=== PATIENT | male | born 1955 | race Caucasian/White ===

== ENCOUNTER 2022-04-07 09:34 | Outpatient (REF) | payer OTHER, SELFPAY ==
[2022-04-07 11:15] LABS: MANUAL DIFF FLAG NO
[2022-04-07 11:21] LABS: Appearance Urine Clear; Color Urine Yellow; Glucose Urine UA Negative (Negative); Leukocyte Esterase Urine Negative (Negative); Nitrite Urine Negative (Negative); Urine Blood Negative (Negative); Urine Ketones Negative (Negative); Urine Protein Negative (Neg-Trace)
[2022-04-07 11:31] LABS: Basophils Percent Auto 0.6 % (0-2); Eosinophils Absolute Auto 0.1 X10*3/uL (0.0-0.4); Eosinophils Percent Auto 1.8 % (0-4); Hematocrit 45.6 % (42.0-52.0); Hemoglobin 15.3 g/dl (14.0-18.0); Imm Gran Abs Auto 0.03 X10*3/uL (0.00-0.03); Imm Gran Pct Auto 0.5 % (0.0-0.4); Lymphocytes Absolute Auto 1.6 X10*3/uL (1.2-4.9); Lymphocytes Percent Auto 23.8 % (20-40); Mean Corpuscular HGB Conc 33.6 g/dl (31.0-36.0); Mean Corpuscular Hemoglobin 29.9 pg (27.0-33.0); Mean Corpuscular Volume 89.2 fL (80.0-98.0); Mean Platelet Volume 10.4 fL (9.4-12.4); Monocytes Absolute Auto 0.9 X10*3/uL (0.1-1.2); Neutrophils Percent Auto 60.3 % (45-73); Platelet Count 133 X10*3/uL (160-400); Red Blood Count 5.11 X10*6/uL (4.60-5.80); Red Cell Distribution Width 12.6 % (11.0-16.0); White Blood Count 6.6 X10*3/uL (4.8-10.8)
[2022-04-07 12:26] LABS: Creatinine Urine 135.34 mg/dL; Microalbum/Creatinine Ratio Ur 17.7 ug/mg cr
[2022-04-07 12:33] LABS: Alanine Aminotransferase 34 U/L (0-40); Albumin Level 4.4 g/dL (3.5-5.0); Alkaline Phosphatase 79 U/L (39-117); Anion Gap 10 (12-20); Aspartate Amino Transferase 19 U/L (5-37); Blood Urea Nitrogen 16 mg/dL (9-16); Calcium 9.1 mg/dL (8.4-10.2); Carbon Dioxide 29 mmol/L (22-29); Chloride 105 mmol/L (96-108); Cholesterol 132 mg/dL; Estimated Glomerular Filt Rate > 60; Glucose Fasting 103 mg/dL (60-99); HDL Cholesterol 28 mg/dL; LDL Cholesterol Calculated 81 mg/dl; Potassium 4.3 mmol/L (3.3-5.1); Sodium 140 mmol/L (135-145); Total Protein 6.6 g/dL (6.5-8.0); Triglycerides 115 mg/dL
[2022-04-07 12:51] LABS: Prostate Specific Antigen Scr 2.52 ng/mL (<0.05-4.0); TSH reflex Free T4 1.38 uIU/mL (0.32-4.0)
== END 2022-04-07 09:35 | disposition home or self-care (01) ==
LOC: HO.WFDLDS 09:34
PROVIDERS: Visit Provider Family Medicine
DX: Z00.00 Encounter for general adult medical examination without abnormal findings (principal); Z12.5 Encounter for screening for malignant neoplasm of prostate; I10 Essential (primary) hypertension
CPT/HCPCS: 36415; 80053; 80061; 81003; 82043; 84153; 84443; 85025

== ENCOUNTER 2022-08-17 09:08 | Outpatient (REF) | payer OTHER, SELFPAY ==
[2022-08-17 11:37] LABS: Alanine Aminotransferase 22 U/L (0-40); Albumin Level 4.3 g/dL (3.5-5.0); Alkaline Phosphatase 64 U/L (39-117); Anion Gap 11 (12-20); Aspartate Amino Transferase 17 U/L (5-37); Bilirubin Total 1.1 mg/dL (0.0-1.0); Blood Urea Nitrogen 16 mg/dL (9-16); Calcium 9.1 mg/dL (8.4-10.2); Carbon Dioxide 27 mmol/L (22-29); Chloride 105 mmol/L (96-108); Cholesterol 132 mg/dL; Estimated Glomerular Filt Rate > 60; Glucose Fasting 97 mg/dL (60-99); HDL Cholesterol 32 mg/dL; LDL Cholesterol Calculated 76 mg/dl; Potassium 4.2 mmol/L (3.3-5.1); Sodium 139 mmol/L (135-145); Total Protein 6.7 g/dL (6.5-8.0); Triglycerides 124 mg/dL
== END 2022-08-17 09:09 | disposition home or self-care (01) ==
LOC: HO.WFDLDS 09:08
PROVIDERS: Visit Provider Family Medicine
DX: Z00.00 Encounter for general adult medical examination without abnormal findings (principal); E78.5 Hyperlipidemia, unspecified
CPT/HCPCS: 36415; 80053; 80061

== ENCOUNTER 2022-12-18 15:33 | Outpatient (AMB) | payer OTHER, SELFPAY ==
--- NOTE | 2022-12-18 15:41 | A.OFFPC_ITS ---
Vital Signs 12/18/22 15:45 Height 5 ft 10 in Weight 196 lb BMI 28.1 BP 136/72 Blood Pressure Location Lt brachial Position Sitting Pulse 69 Pulse Source Pulse Oximeter Pulse Oximetry (%) 96 Oxygen Delivery Method Room Air Intake Visit Reasons: f/u hypertension Intake Note: Patient is here to follow up on hypertension, and is complaining of right foot pain today. 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 HIs name is Timothy Alves [phone]. [address] [facility] in [place]. Allergies No Known Allergies Allergy (Verified 12/18/22 15:48) Tobacco use date assessed: 08/24/22 HPI f/u hypertension HPI Details Patient?presents?to?follow-up?hypertension. Blood?pressure?is?a?little?too?high?today .??His?bookmobile librarian?had?decreased?amlodipine.??He?notes?his?blood?pressures?are? high?at?home?as?well. Had?added?Zetia?to?his?atorvastatin?for?better?lipid?control.??He?is?tolerating? this?well. He?has?right?heel?pain?which?worsens?after?sitting?or?resting PFSH Social History Housing: House Patient Tobacco Use Status: Never used Tobacco e-Cigarette/Vaping Use: Never Used Second Hand Smoke Exposure: No service: No Current occupational status: employed Current occupational exposures/hazards: No Cognitive needs: No Hearing needs: No Vision needs: No Questionnaire Thrive Questionnaire Date Thrive assessed: 04/14/22 VAMSHI-7 AMB Questionnaire VAMSHI-7 Date VAMSHI - 7 assessed: 04/14/22 Source: Developed by Drs. Smith Davies, Jennifer Melendez, Camacho Vance and colleagues, with an educational gage from [employer]. Review of Systems Const Denies chills, Denies fatigue, Denies fever(s), Denies headache(s) and Denies weakness ENT Denies dizziness and Denies headache(s) Card Denies chest pain, Denies lightheadedness, Denies dyspnea and Denies other (Palpitations) Resp Denies cough, Denies dyspnea, Denies wheezing and Denies other ( shortness of breath) Musc Details: Right?posterior?heel?pain Denies numbness and Denies tingling Neuro Denies dizziness, Denies headache(s), Denies numbness, Denies tingling, Denies paresthesias and Denies weakness Psych Denies anxiety and Denies depression Endo Denies fatigue Aller/Immun Denies wheezing Physical exam (Primary Care) Vital Signs: Last Vital Signs Pulse 69 12/18/22 15:45 BP 136/72 12/18/22 15:45 Pulse Ox 96 12/18/22 15:45 Oxygen Delivery Method Room Air 12/18/22 15:45 BMI result Body Mass Index 28.1 Tobacco/Smoking Status: Tobacco use Status Tobacco use date assessed 08/24/22 12/18/22 15:43 Patient Tobacco Use Status Never used Tobacco 12/18/22 15:43 e-Cigarette/Vaping Use Never Used 12/18/22 15:43 Thrive Assessment: Date of Thrive Assessment Date Thrive assessed 04/14/22 12/18/22 15:43 Const General: no acute distress and well developed Nutritional Appearance: well nourished Orientation/consciousness: patient oriented x3 [facility] Head: Yes normocephalic and Yes atraumatic Eyes General: appearance normal, both eyes and all related structures Pupils: Equal, round and reactive pupils present EOM: EOMs intact bilaterally Resp Effort & Inspection: normal respiratory effort Auscultation: clear to auscultation bilaterally Cardio Rate: regular rate Rhythm: regular rhythm Heart sounds: S1 normal heart sound present, S2 normal heart sound present, no gallops, no murmurs and no rubs Neuro General: patient oriented x3 and gait normal Cranial nerves: Yes Equal, round and reactive pupils present Extrem Other: Right?posterior?heel?pain?and?tenderness.??Minimal?swelling.??No?erythema?or?war mth.??No?weakness?of?plantar?flexion Psych Affect: normal affect Assessment and Plan Assessment & Plan (1) Hypertension: Code(s): I10 - Essential (primary) hypertension Plan: Blood?pressure?is?too?high?for?patient?with?coronary?a rtery?disease.??Goal?is?less?than?130/80 Increase?amlodipine?to?10?mg?daily?and?he?can?let?his?bookmobile librarian?know?he?has?i ncrease?this?again. Continue?metoprolol?as?prescribed (2) Coronary artery disease: Code(s): I25.10 - Atherosclerotic heart disease of [place] coronary artery without angina pectoris Plan: Stable. ??Continue?Brilinta,?clopidogrel?and?metoprolol.??Continue?atorvastatin?and?Zeti a. Follow-up?with?Cardiology?as?recommended (3) Hyperlipidemia: Code(s): E78.5 - Hyperlipidemia, unspecified Plan: Continues?atorvastatin?and?has?added?Zetia Tolerating?this?regimen?well Check?lipids?prior?to?next?visit (4) Insertional Achilles tendinopathy: Code(s): M76.60 - Achilles tendinitis, unspecified leg Plan: Demonstrated?stretches?and?he?can?use?ice?and?heat If?not?improving?will?start?physical?therapy?and?refer?to?ortho Coding Level of Care Code Est Pt Level 4 (35788) Diagnoses Hypertension I10 Coronary artery disease I25.10 Hyperlipidemia E78.5 Insertional Achilles tendinopathy M76.60
[2022-12-18 15:45] VITALS: BP 136/72; PULSE 69; O2SAT 96; BMI 28.1
== END 2022-12-18 16:57 | disposition home or self-care (01) ==
PROVIDERS: PCP Family Medicine; Visit Provider Family Medicine
DX: I10 Essential (primary) hypertension (principal); I25.10 Atherosclerotic heart disease of native coronary artery without angina pectoris; E78.5 Hyperlipidemia, unspecified; M76.60 Achilles tendinitis, unspecified leg
CPT/HCPCS: 99214

== ENCOUNTER 2023-01-22 09:16 | Outpatient (REF) | payer OTHER, SELFPAY ==
[2023-01-22 11:18] LABS: Appearance Urine Clear; Color Urine Yellow; Glucose Urine UA Negative (Negative); Leukocyte Esterase Urine Negative (Negative); Nitrite Urine Negative (Negative); Urine Blood Negative (Negative); Urine Ketones Negative (Negative); Urine Protein Negative (Neg-Trace)
[2023-01-22 12:02] LABS: Alanine Aminotransferase 19 U/L (0-40); Albumin Level 4.6 g/dL (3.5-5.0); Alkaline Phosphatase 76 U/L (39-117); Anion Gap 12 (12-20); Aspartate Amino Transferase 19 U/L (5-37); Bilirubin Total 0.9 mg/dL (0.0-1.0); Blood Urea Nitrogen 11 mg/dL (9-16); Calcium 9.4 mg/dL (8.4-10.2); Carbon Dioxide 28 mmol/L (22-29); Chloride 108 mmol/L (96-108); Cholesterol 113 mg/dL (<200); Estimated Glomerular Filt Rate > 60; Glucose Fasting 106 mg/dL (60-99); HDL Cholesterol 31 mg/dL (>40); LDL Cholesterol Calculated 62 mg/dL (<100); Potassium 4.7 mmol/L (3.3-5.1); Sodium 143 mmol/L (135-145); Total Protein 7.3 g/dL (6.5-8.0); Triglycerides 103 mg/dL (<150)
[2023-01-22 12:24] LABS: Creatinine Urine 119.09 mg/dL; Microalbum/Creatinine Ratio Ur 28.5 ug/mg cr (<30)
== END 2023-01-22 09:17 | disposition home or self-care (01) ==
LOC: HO.WFDLDS 09:16
PROVIDERS: Visit Provider Family Medicine
DX: Z00.00 Encounter for general adult medical examination without abnormal findings (principal); I10 Essential (primary) hypertension
CPT/HCPCS: 36415; 80053; 80061; 81003; 82043; 82570

== ENCOUNTER 2023-01-31 13:29 | Outpatient (AMB) | payer OTHER, SELFPAY ==
[2023-01-31 13:35] VITALS: BP 130/68; PULSE 61; O2SAT 98; BMI 28.1
--- NOTE | 2023-01-31 13:35 | A.OFFPC_ITS ---
Vital Signs 01/31/23 13:35 Height 5 ft 10 in Weight 196 lb BMI 28.1 BP 130/68 Blood Pressure Location Lt brachial Position Sitting Pulse 61 Pulse Source Pulse Oximeter Pulse Oximetry (%) 98 Oxygen Delivery Method Room Air Intake Visit Reasons: Follow-up?hypertension?and?lipids Intake Note: Patient is here to follow up on hypertension and lipids. Allergies No Known Allergies Allergy (Verified 01/31/23 13:37) Tobacco use date assessed: 01/31/23 Fall risk assessment: No Falls in past year Last assessed Fall Risk: 01/31/23 HPI Follow-up?hypertension?and?lipids HPI Details 67 y/o male presents to f/u hypertension and lipids. Labs were drawn 01/22/23. Reviewed labs with pt. Elevated fasting glucose of 106. Triglycerides 103. TC 113. LDL 62. HDL low at 31. Hx of CAD and is on artovastatin 80mg and ezetimibe 10mg daily. Blood pressure today 130/68. He is on amlodipine 10mg and metoprolol 25mg daily. Also recently put on isosorbide 30mg daily. A1c today 01/31/23 is 5.6%, which is unchanged from March. Pt reports a dry throat. [facility] Social History Housing: House Patient Tobacco Use Status: Never used Tobacco e-Cigarette/Vaping Use: Never Used Second Hand Smoke Exposure: No service: No Current occupational status: employed Current occupational exposures/hazards: No Cognitive needs: No Hearing needs: No Vision needs: No Questionnaire Thrive Questionnaire Date Thrive assessed: 04/14/22 VAMSHI-7 AMB Questionnaire VAMSHI-7 Date VAMSHI - 7 assessed: 04/14/22 Source: Developed by Drs. Smith Davies, Jennifer Melendez, Camacho Vance and colleagues, with an educational gage from [employer]. Review of Systems Const Denies chills, Denies fatigue, Denies fever(s), Denies headache(s) and Denies weakness ENT Denies dizziness and Denies headache(s) Card Denies dyspnea Resp Denies cough, Denies dyspnea, Denies wheezing and Denies other (shortness of breath) Musc Denies numbness and Denies tingling Neuro Denies dizziness, Denies headache(s), Denies numbness, Denies tingling and Denies weakness Psych Denies anxiety and Denies depression Endo Denies fatigue Aller/Immun Denies wheezing Physical exam (Primary Care) Vital Signs: Last Vital Signs Pulse 61 01/31/23 13:35 BP 130/68 01/31/23 13:35 Pulse Ox 98 01/31/23 13:35 Oxygen Delivery Method Room Air 01/31/23 13:35 BMI result Body Mass Index 28.1 Tobacco/Smoking Status: Tobacco use Status Tobacco use date assessed 01/31/23 01/31/23 13:44 Patient Tobacco Use Status Never used Tobacco 01/31/23 13:44 e-Cigarette/Vaping Use Never Used 01/31/23 13:44 Thrive Assessment: Date of Thrive Assessment Date Thrive assessed 04/14/22 01/31/23 13:44 Const General: well developed; No acute distress Nutritional Appearance: well nourished Orientation/consciousness: patient oriented x3 HENMT Head: Yes normocephalic and Yes atraumatic Eyes General: appearance normal, both eyes and all related structures Pupils: Equal, round and reactive pupils present EOM: EOMs intact bilaterally Resp Effort & Inspection: normal respiratory effort Auscultation: clear to auscultation bilaterally Cardio Rate: regular rate Rhythm: regular rhythm Heart sounds: S1 normal heart sound present, S2 normal heart sound present, no gallops, no murmurs and no rubs Neuro General: patient oriented x3 and gait normal Cranial nerves: Yes Equal, round and reactive pupils present Psych Affect: normal affect Assessment and Plan Assessment & Plan (1) Hypertension: Code(s): I10 - Essential (primary) hypertension Plan: Blood?pressure?is?fairly?well?controlled.??Goal?is?less?than?130/80?for?patient? with?coronary?artery?disease Continue?current?medications He?had?noted?previously?that?his?blood?pre ssures?at?home?were?higher?than?in?the?office.??He?has?not?been?checking?his?blo od?pressure?to?let?me?know?if?it?has?improved?since?increasing?amlodipine?to?10? mg?daily. He?will?bring?in?a?log?of?blood?pressures?from?home?for?next?visit. (2) Hyperlipidemia: Code(s): E78.5 - Hyperlipidemia, unspecified Plan: LDL?now?well?controlled?and?at?goal?of?less?than?70?for?patient?with?coronary?[place]?disease?since?adding?Zetia?to?his?atorvastatin. 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?ischem ia Stable Continue?current?medications?and?follow-up?with?Cardiology?as?recommended (4) Elevated fasting blood sugar: Code(s): R73.01 - Impaired fasting glucose Plan: A1c?steady?at?5.6% Encouraged?a?diet?low?in?sugars?and?starches (5) Low HDL (under 40): Code(s): E78.6 - Lipoprotein deficiency Plan: Encouraged?exercise (6) Postnasal drip: Code(s): R09.82 - Postnasal drip Plan: Can?try?Zyrtec?OTC Hydrate?well Coding Level of Care Code Est Pt Level 4 (40118) Diagnoses Hypertension I10 Hyperlipidemia E78.5 Coronary artery disease I25.10 Elevated fasting blood sugar R73.01 Low HDL (under 40) E78.6 Postnasal drip R09.82
== END 2023-01-31 14:20 | disposition home or self-care (01) ==
PROVIDERS: PCP Family Medicine; Visit Provider Family Medicine
DX: I10 Essential (primary) hypertension (principal); E78.5 Hyperlipidemia, unspecified; I25.10 Atherosclerotic heart disease of native coronary artery without angina pectoris; R73.01 Impaired fasting glucose; E78.6 Lipoprotein deficiency; R09.82 Postnasal drip
CPT/HCPCS: 83036; 99214

== ENCOUNTER 2023-05-02 14:16 | Outpatient (AMB) | payer OTHER, SELFPAY ==
[2023-05-02 14:19] VITALS: BP 132/80; PULSE 58; O2SAT 97; BMI 27.7
--- NOTE | 2023-05-02 14:19 | A.OFFPC_ITS ---
Vital Signs 05/02/23 14:19 Height 5 ft 10 in Weight 193 lb BMI 27.7 BP 132/80 Blood Pressure Location Lt brachial Position Sitting Pulse 58 Pulse Source Pulse Oximeter Pulse Oximetry (%) 97 Oxygen Delivery Method Room Air Intake Visit Reasons: Follow-up?hypertension Intake Note: Patient is here to follow up with hypertension. He needs refill of Atorvastatin. Allergies No Known Allergies Allergy (Verified 05/02/23 14:21) Tobacco use date assessed: 05/02/23 Fall risk assessment: No Falls in past year Last assessed Fall Risk: 05/02/23 Dental Screening Dental Screen Date: 05/02/23 Did you have a dental visit in the last 12 months?: Yes Did you have a dental problem in the last 6 months where you did not have access to dental care?: No Was dental information given to patient?: Patient has dentist HPI Follow-up?hypertension HPI Details 67 y/o male presents to f/u hypertension . Blood pressure today 132/80. He is on amlodipine 10mg, metoprolol 25mg daily. [facility] Social History (Reviewed 05/02/23 @ 14:23 by Marylou Urban [facility]) Housing: House Patient Tobacco Use Status: Never used Tobacco e-Cigarette/Vaping Use: Never Used Second Hand Smoke Exposure: No service: No Current occupational status: employed Current occupational exposures/hazards: No Cognitive needs: No Hearing needs: No Vision needs: No Questionnaire PHQ-9 Over the last 2 weeks, how often have you been bothered by any of the following problems? 1. Little interest or pleasure in doing things: not at all 2. Feeling down, depressed, or hopeless: not at all 3. Trouble falling or staying asleep, or sleeping too much: not at all 4. Feeling tired or having little energy: not at all 5. Poor appetite or overeating: not at all 6. Feeling bad about yourself - or that you are a failure or have let yourself or your family down: not at all 7. Trouble concentrating on things, such as reading the newspaper or watching television: not at all 8. Moving or speaking so slowly that other people could have noticed. Or the opposite - being so fidgety or restless that you have been moving around a lot more than usual: not at all 9. Thoughts that you would be better off or of hurting yourself in some way: not at all Total score: 0 Depression Screening Interpretation: Negative Depression Screening Done: Yes 80482 - PHQ-9 Billing: Yes Source: Developed by Drs. Smith Davies, Jennifer Melendez, Camacho Vance and colleagues, with an educational gage from [employer]. Thrive Questionnaire Date Thrive assessed: 05/02/23 I am a: Patient What is your living situation today?: I have a steady place to live Within the past 12 months, did the food you bought not last and you didn't have the money to get more?: Never true Within the past 12 months, did you worry whether your food would run out before you got money to buy more?: Never true Do you have trouble paying for medicines?: No Do you have trouble getting transportation to medical appointments?: No Do you have trouble paying your heating and electricity bill?: No Do you have trouble taking care of your child, family member or friend?: No Do you have trouble with day-to-day activities such as bathing, preparing meals, shopping, managing finances, etc.?: No Are you currently unemployed and looking for a job?: No Are you interested in more education?: No THRIVE Score: 0 AUDIT C Alcohol Use Questionnaire (AUDIT-C) 1. How often do you have a drink containing alcohol?: Monthly or less 2. How many drinks containing alcohol do you have on a typical day when you are drinking?: 1 or 2 3. How often do you have six or more drinks on one occasion?: Never Total Score: 1 VAMSHI-7 AMB Questionnaire VAMSHI-7 Date VAMSHI - 7 assessed: 05/02/23 Feeling nervous, anxious, or on edge: 1 = Several days Not being able to stop or control worryin = Not at all Worrying too much about different things: 0 = Not at all Trouble relaxin = Several days Being so restless that it is hard to sit still: 0 = Not at all Becoming easily annoyed or irritable: 1 = Several days Feeling afraid as if something awful might happen: 0 = Not at all Total VAMSHI-7 score (0-4 normal; 5-9 mild; 10-14 moderate; 15-21 severe): 3 Source: Developed by Drs. Smith Davies, Jennifer Melendez, Camacho Vance and colleagues, with an educational gage from [employer]. VAMSHI-7 Assessment Billing VAMSHI-7 Assessment Tool: VAMSHI-7 Assessment 97628 Review of Systems Const Denies chills, Denies fatigue, Denies fever(s), Denies headache(s) and Denies weakness ENT Denies dizziness and Denies headache(s) Card Denies chest pain, Denies lightheadedness, Denies dyspnea and Denies other (Palpitations) Resp Denies cough, Denies dyspnea, Denies wheezing and Denies other ( shortness of breath) Musc Denies numbness and Denies tingling Neuro Denies dizziness, Denies headache(s), Denies numbness, Denies tingling, Denies paresthesias and Denies weakness Psych Denies anxiety and Denies depression Endo Denies fatigue Aller/Immun Denies wheezing Physical exam (Primary Care) Vital Signs: Last Vital Signs Pulse 58 05/02/23 14:19 BP 132/80 05/02/23 14:19 Pulse Ox 97 05/02/23 14:19 Oxygen Delivery Method Room Air 05/02/23 14:19 BMI result Body Mass Index 27.7 Tobacco/Smoking Status: Tobacco use Status Tobacco use date assessed 05/02/23 05/02/23 14:23 Patient Tobacco Use Status Never used Tobacco 05/02/23 14:23 e-Cigarette/Vaping Use Never Used 05/02/23 14:23 PHQ-9: PHQ-9 Score PHQ-9: Total score 0 05/02/23 14:33 Depression Screening Interpretation: Negative Thrive Assessment: Date of Thrive Assessment Date Thrive assessed 05/02/23 05/02/23 14:32 Const General: no acute distress and well developed Nutritional Appearance: well nourished Orientation/consciousness: patient oriented x3 HENMT Head: Yes normocephalic and Yes atraumatic Eyes General: appearance normal, both eyes and all related structures Pupils: Equal, round and reactive pupils present EOM: EOMs intact bilaterally Resp Effort & Inspection: normal respiratory effort Auscultation: clear to auscultation bilaterally Cardio Rate: regular rate Rhythm: regular rhythm Heart sounds: S1 normal heart sound present, S2 normal heart sound present, no gallops, no murmurs and no rubs Neuro General: patient oriented x3 and gait normal Cranial nerves: Yes Equal, round and reactive pupils present Psych Affect: normal affect Assessment and Plan Assessment & Plan (1) Hypertension: Code(s): I10 - Essential (primary) hypertension Plan: Blood?pressure?is?fairly?well?controlled.??Goal?is?less?than?130/80?for?patien t?with?coronary?artery?disease. No?medication?changes?were?made?today?but?I?did?encourage?weight?loss,?exercise? and?salt/sodium?reduction?in?diet. (2) Coronary artery disease: Code(s): I25.10 - Atherosclerotic heart disease of [place] coronary artery without angina pectoris Plan: Stable Orders: Orders Complete Blood Count Auto Diff Today Z00.00 - Encounter for general adult medic al examination without abnormal findings Lipid Panel Today Z00.00 - Encounter for general adult medical examination without abnormal findings UA and rflx microscopic Today Z00.00 - Encounter for general adult medical examination without abnormal findings Comprehensive [place]. Panel Fast Today Z00.00 - Encounter for general adult medical examination without abnormal findings Prostate Specific Antigen Scr Today Z12.5 - Encounter for screening for malignant neoplasm of prostate Microalbumin, Random (w Creat) Today I10 - Essential (primary) hypertension TSH reflex Free T4 Today Z00.00 - Encounter for general adult medical examination without abnormal findings Medications: Changed From amlodipine 10 mg (2 x 5 mg) PO DAILY 90 days 180 tabs 3RF To amlodipine 10 mg PO DAILY 90 tabs 3RF 90 days Refilled atorvastatin 80 mg PO DAILY 90 days 90 tabs 3RF Coding Level of Care Code Est Pt Level 3 (77582) Diagnoses Hypertension I10 Coronary artery disease I25.10 Additional Codes VAMSHI-7 Assessment Billing - VAMSHI-7 Assessment Tool: VAMSHI-7 Assessment [id number] ([id number])
== END 2023-05-02 14:49 | disposition home or self-care (01) ==
PROVIDERS: PCP Family Medicine; Visit Provider Family Medicine
DX: I10 Essential (primary) hypertension (principal); I25.10 Atherosclerotic heart disease of native coronary artery without angina pectoris
CPT/HCPCS: 99213